=== PATIENT | male | born 1955 | race African-American/Black ===

== ENCOUNTER 2017-02-25 13:02 | Emergency (ER) | payer OTHER ==
--- NOTE | ~2017-02-25 | CR169 ---
[facility]. [facility] A Service of [facility] & [facility] RADIOLOGY TEXT RESULTS PATIENT: VONNIE RICHTER JR LOCATION: SED : 55 UNIT #: [id number] AGE: [address]: Roxann Villa APRN SEX: M ORDER DR: [id number] [address] [address] [id number] E MR#: [id number] Acc #: [id number] NAME: VONNIE RICHTER JR : 1955 SEX: M STUDY DATE/TIME: 02/25/2017 14:06 UNIT: SED ROOM: STUDY DESCRIPTION: CR Knee 2 Views Lt Attending Physician: Roxann Villa A.P.R.N. Ordering Physician: Roxann Falk A.P.R.N. MEDICAL IMAGING REPORT This report is preliminary unless electronic signature is present. EXAM 2-view left knee HISTORY Swollen painful knee for 2 days history of gout. FINDINGS 2 views of the left knee demonstrates distension of the suprapatellar bursa compatible with a joint effusion. Mild degenerative arthropathy of the knee with spurring of the tibial spines and developing marginal osteophytes. No erosions. Bone mineralization unremarkable. IMPRESSION Nonspecific joint effusion. This could represent a manifestation of gout. Dictated by... Benjamin Triplett M.D. THIS IS AN ELECTRONICALLY VERIFIED REPORT Benjamin Triplett M.D. at 02/26/2017 8:00 AM NATE/grace TD: 02/25/2017 19:31 JOB #: [id number] MEDICAL IMAGING REPORT Page 1 of 1
[2017-02-25] MEDS ORDERED: BAYER CHEWABLE81 MG (13:23)
[2017-02-25] MEDS ORDERED: SPIRIVA18 MCG (13:23)
[2017-02-25] MEDS ORDERED: B/P MED (13:24)
== END 2017-02-25 15:00 | disposition home or self-care (01) ==
LOC: SED 13:02
DX: M25.462 Effusion, left knee (principal); I10 Essential (primary) hypertension; Z98.890 Other specified postprocedural states
CPT/HCPCS: 29530; 73560; 99283